=== PATIENT | male | born 1995 | race Caucasian/White ===

== ENCOUNTER 2022-02-25 19:39 | Emergency (ER) | payer MEDICAID, OTHER ==
[2022-02-25 20:13] LABS: BASOPHILS % (AUTO) 0.5 %; EOSINOPHILS % (AUTO) 0.4 %; HCT - HEMATOCRIT 41.1 % (42.0-52.0); HGB - HEMOGLOBIN 14.4 g/dL (14.0-18.0); LYMPHOCYTES # (AUTO) 1.6 10^3/uL (1.5-3.5); LYMPHOCYTES % (AUTO) 19.5 %; MEAN CORPUSCULAR HEMOGLOBIN 29.4 pg (27.0-31.0); MEAN CORPUSCULAR VOLUME 83.9 fL (80.0-94.0); MEAN PLATELET VOLUME 9.3 fL (7.4-11.4); MONOCYTES # (AUTO) 0.7 10^3/uL (0.0-1.0); MONOCYTES % (AUTO) 8.4 %; NEUTROPHILS # (AUTO) 5.8 10^3/uL (1.5-6.6); PLT - PLATELET COUNT 246 10^3/uL (130-450); RED CELL DISTRIBUTION WIDTH 11.9 % (12.0-15.0); WHITE BLOOD COUNT 8.1 x10^3/uL (4.8-10.8)
[2022-02-25 20:32] LABS: ALBUMIN 4.7 g/dL (3.2-5.5); ALBUMIN/GLOBULIN RATIO 2.1 (1.0-2.2); BILIRUBIN,TOTAL 0.7 mg/dL (0.2-1.0); CALCIUM 9.6 mg/dL (8.5-10.3); CREATININE 1.1 mg/dL (0.6-1.2); TOTAL PROTEIN 6.9 g/dL (6.7-8.2)
--- NOTE | 2022-02-25 20:34 | XRAY Report ---
PROCEDURE: Chest 1 View X-Ray INDICATIONS: Chest pain TECHNIQUE: One view of the chest was acquired. COMPARISON: None. FINDINGS: Surgical changes and devices: None. Lungs and pleura: No pleural effusions or pneumothorax. Lungs are clear. Mediastinum: Mediastinal contours appear normal. Heart size is normal. Bones and chest wall: No suspicious bony lesions. Overlying soft tissues appear unremarkable. IMPRESSION: No acute cardiopulmonary process demonstrated radiographically. Reviewed by: Josue Kingsley MD on 02/25/2022 8:33 PM PDT Approved by: Josue Kingsley MD on 02/25/2022 8:33 PM PDT Station ID: [email or web address]
--- NOTE | 2022-02-25 21:22 | ED Physician Documentation ---
History of Present Illness - Stated complaint Stated Complaint: CHEST PX,SOA - Chief complaint Chief Complaint: Cardiac - History obtained from History obtained from: Patient - History of Present Illness Timing: Today - Additonal information Additional information: 26-year-old male with history of ADHD on Adderall presents for chest pain and shortness of breath that have been present since today. Pain is sharp, intermittent, worse with deep inspiration, doesn't radiate. Patient states that several days ago he had his ADHD medications increased. He states that he has been under a lot of stress and working a lot lately. He states that he vapes, ingests a lot of caffeine, and has had poor sleep for the last 2 to 3 days. In addition he is working on a project where he is standing materials without a facemask on. Patient denies syncope, leg swelling, cough, wheezing, other complaints at this time. Review of Systems Ten Systems: 10 systems reviewed and negative Constitutional: denies: Fever, Chills Cardiac: reports: Chest pain / pressure. denies: Palpitations, Pedal edema Respiratory: reports: Dyspnea. denies: Cough, Wheezing Neurologic: denies: Generalized weakness, Focal weakness, Syncope PD PAST MEDICAL HISTORY - Past Medical History Past Medical History: Yes Psych: Anxiety, ADD/ADHD - Past Surgical History Past Surgical History: Yes Ortho: Other (ORIF right ankle fracture) - Present Medications Home Medications: Ambulatory Orders Medication Instructions Recorded Confirmed No Known Home Medications 03/05/16 03/05/16 - Allergies Allergies/Adverse Reactions: Allergies Allergy/AdvReac Type Severity Reaction Status Date / Time No Known Drug Allergies Allergy Verified 02/25/22 19:56 - Social History Does the pt smoke?: No Smoking Status: Never smoker Does the pt drink ETOH?: No Does the pt have substance abuse?: No - Immunizations Immunizations are current?: Yes - POLST Patient has POLST: No PD ED PE NORMAL - Vitals Vital signs reviewed: Yes - General General: Alert and oriented X 3, No acute distress, Well developed/nourished - HEENT HEENT: Atraumatic, PERRL, EOMI, Ears normal - Neck Neck: Supple, no meningeal sign, No bony TTP, C-Spine cleared by NEXUS criteria - Cardiac Cardiac: RRR, No murmur, No gallop, Strong equal pulses - Respiratory Respiratory: No respiratory distress, Clear bilaterally - Abdomen Abdomen: Soft, Non tender, Non distended - Back Back: No CVA TTP, No spinal TTP - Derm Derm: Normal color, Warm and dry, No rash - Extremities Extremities: No deformity, No tenderness to palpate, Normal ROM s pain, No edema - Neuro Neuro: Alert and oriented X 3, city secretary 2-12 intact, No motor deficit, No sensory deficit, Normal speech - Psych Psych: Normal mood, Normal affect Results - Vitals Vitals: Vital Signs - 24 hr 02/25/22 02/25/22 19:44 21:35 Temperature 36.8 C Heart Rate 96 84 Respiratory 14 12 Rate Blood Pressure 128/82 H 124/88 H O2 Saturation 98 99 Oxygen O2 Source Room air - EKG (time done) 1945 Rate: Rate (enter#) (96) Rhythm: NSR [place]: Normal Intervals: Normal [place] QRS: Normal Ischemia: Normal ST segments - Labs Labs: Laboratory Tests 02/25/22 02/25/22 02/25/22 20:08 20:08 20:08 WBC 8.1 RBC 4.90 Hgb 14.4 Hct 41.1 L MCV 83.9 MCH 29.4 MCHC 35.0 RDW 11.9 L Plt Count 246 MPV 9.3 Neut # (Auto) 5.8 Lymph # (Auto) 1.6 [place] # (Auto) 0.7 Eos # (Auto) 0.0 Baso # (Auto) 0.0 Absolute Nucleated RBC 0.00 Nucleated RBC % 0.0 Sodium 135 Potassium 4.0 Chloride 100 L Carbon Dioxide 27 Anion Gap 8.0 BUN 21 H Creatinine 1.1 Estimated GFR (MDRD) 80 L Glucose 122 H Calcium 9.6 Total Bilirubin 0.7 AST 19 ALT 19 Alkaline Phosphatase 43 Troponin I High Sens 3.1 Total Protein 6.9 Albumin 4.7 Globulin 2.2 Albumin/Globulin Ratio 2.1 Lipase 29 PD MEDICAL DECISION MAKING - ED course Complexity details: reviewed results, re-evaluated patient, considered differential, d/w patient ED course: Well-appearing male with chest pain and shortness of breath. Speaking in complete sentences without difficulty, hemodynamically stable. Labs and imaging are unremarkable. This is likely secondary to numerous factors, not limited to increased stress, decreased sleep, vaping, and poor workplace habits. Counseled on importance of sleep hygiene, decreasing caffeine, and cessation of vaping. Departure - Departure Disposition: 01 Home, Self Care Clinical Impression: Chest pain Qualifiers: Chest pain type: unspecified Qualified Code(s): R07.9 - Chest pain, unspecified Dyspnea Qualifiers: Dyspnea type: unspecified Qualified Code(s): R06.00 - Dyspnea, unspecified Condition: Stable Instructions: Melatonin oral solid dosage forms, ED Insomnia Discharge Date/Time: 02/25/22 21:35
[2022-02-25 21:35] VITALS: BP 124/88
== END 2022-02-25 21:35 | disposition home or self-care (01) ==
LOC: ED 19:39
DX: R07.9 Chest pain, unspecified (principal); R06.09 Other forms of dyspnea
CPT/HCPCS: 36415; 80053; 83690; 84484; 85025; 93005; 99282; 99284

== ENCOUNTER 2022-11-26 21:45 | Emergency (ER) | payer MEDICAID ==
--- NOTE | 2022-11-26 23:48 | ED Physician Documentation ---
PD HPI SKIN - Stated complaint Stated Complaint: INFECTION - Chief complaint Chief Complaint: Wound - History obtained from History obtained from: Patient - Additional information Additional information: HPI from patient. Patient c/o 1 week of right nare swelling, pain/tenderness, erythema. Has had si milar symptoms before for which he was evaluated in ED and rx antibiotics which has resulted in resolution. Patient had amoxicillin left over from old prescription, had brief improvement in symptoms with two days of this medication Review of Systems Constitutional: denies: Fever PD PAST MEDICAL HISTORY - Past Medical History Past Medical History: No Psych: Anxiety, ADD/ADHD - Past Surgical History Past Surgical History: Yes Ortho: Other (ORIF right ankle fracture) - Present Medications Home Medications: Ambulatory Orders Medication Instructions Recorded Confirmed Doxycycline [Vibramycin] 100 mg PO BID #14 tablet 11/26/22 - Allergies Allergies/Adverse Reactions: Allergies Allergy/AdvReac Type Severity Reaction Status Date / Time No Known Drug Allergies Allergy Verified 02/25/22 19:56 - Social History Does the pt smoke?: No Smoking Status: Never smoker Does the pt drink ETOH?: No Does the pt have substance abuse?: No - Immunizations Immunizations are current?: Yes - POLST Patient has POLST: No PD ED PE NORMAL - Vitals Vital signs reviewed: Yes - General General: Alert and oriented X 3, No acute distress, Well developed/nourished PD ED PE EXPANDED - HEENT HEENT Visual: 1 - tenderness (focal erythema, swelling, TTP. mucosal crusting) Results - Vitals Vitals: Oxygen O2 Source Room air PD Medical Decision Making - ED course ED course: focal cellulitis of right nare ala, given 100mg doxycycline in ED and rx for same e-prescribed Departure - Departure Disposition: 01 Home, Self Care Clinical Impression: Cellulitis Qualifiers: Site of cellulitis: face Qualified Code(s): L03.211 - Cellulitis of face Condition: Good Instructions: ED Staph Infec Abx Tx Only Follow-Up: Bishop Gilbert [Primary Care Provider] - Prescriptions: Doxycycline [Vibramycin] 100 mg PO BID #14 tablet Comments: It appears that you have an infection of the skin on the side of the nose; there is also some crusting on the inner aspect of the nostril that correlates with the same site as the outer infection. This crusting further suggests a bacterial infection. You are given the first dose of an antibiotic (doxycycline) in the emergency department, and a prescription for a 1 week course of this antibiotic has been electronically submitted to the [facility] pharmacy in [place]. Discharge Date/Time: 11/27/22 00:05
[2022-11-27] MEDS: DOXYCYCLINE 100 MG TABLET PO STA (00:04)
[2022-11-27 00:06] VITALS: BP 134/84
== END 2022-11-27 00:05 | disposition home or self-care (01) ==
LOC: ED 21:45
DX: J34.0 Abscess, furuncle and carbuncle of nose (principal)
CPT/HCPCS: 99282; 99283; A9270

== ENCOUNTER 2023-07-06 01:25 | Emergency (ER) | payer MEDICAID ==
[2023-07-06 01:33] VITALS: BP 147/87; O2SAT 100
[2023-07-06] MEDS ORDERED: ONDANSETRON ODT 4 MG Prepack 2 TL PRN (01:41)
[2023-07-06] MEDS ORDERED: DOXYCYCLINE 100 MG TABLET PO STA (01:41)
[2023-07-06] MEDS ORDERED: ONDANSETRON ODT 4 MG TABLET TL STA (01:41)
[2023-07-06] MEDS ORDERED: KETOROLAC 60 MG/2 ML VIAL IM STA (01:41)
--- NOTE | 2023-07-06 01:44 | ED Physician Documentation ---
PD HPI SKIN - Stated complaint Stated Complaint: HAMMOND/ NAUSEA - Chief complaint Chief Complaint: Heent - History obtained from History obtained from: Patient - Additional information Additional information: Patient is a 27-year-old male presenting for evaluation of redness and swelling to his face. He reports having recurrent staph infections to the face with unclear etiology and get some in various areas. This episode started a day or 2 ago with noticing some redness around the left eye and then also in the right jaw area. In the right jaw area there was a small abscess that opened and drained pus today. He denies fever, changes to his vision, blurred vision, chest pain, difficulty swallowing or breathing. He reports mild nausea and headache. He denies any significant prior medical history such as a history of diabetes.He reports responding well to doxycycline for these episodes in the past and that Augmentin in the past has not helped him. Review of Systems Constitutional: denies: Fever Cardiac: denies: Chest pain / pressure Respiratory: denies: Dyspnea GI: denies: Abdominal Pain Skin: reports: Rash PD PAST MEDICAL HISTORY - Past Medical History Psych: Anxiety, ADD/ADHD - Past Surgical History Past Surgical History: Yes Ortho: Other - Present Medications Home Medications: Ambulatory Orders Medication Instructions Recorded Confirmed Doxycycline [Vibramycin] 100 mg PO BID #14 tablet 11/26/22 Doxycycline Hyclate 100 mg PO BID #14 tab 07/06/23 Ondansetron Odt [Zofran] 4 mg TL Q6H PRN #10 tablet 07/06/23 - Allergies Allergies/Adverse Reactions: Allergies Allergy/AdvReac Type Severity Reaction Status Date / Time No Known Drug Allergies Allergy Verified 02/25/22 19:56 - Social History Does the pt smoke?: No Smoking Status: Never smoker Does the pt drink ETOH?: No Does the pt have substance abuse?: No - Immunizations Immunizations are current?: Yes - POLST Patient has POLST: No PD ED PE NORMAL - General General: Alert and oriented X 3, No acute distress, Well developed/nourished - HEENT HEENT: Atraumatic, PERRL, EOMI, Moist mucous membranes, Pharynx benign (No oral swelling, erythema or exudate) - Neck Neck: Supple, no meningeal sign - Cardiac Cardiac: RRR - Respiratory Respiratory: No respiratory distress, Clear bilaterally - Derm Derm: Other (Area of erythema and swelling to right jawline, appears to have had an abscess which is opened and drained, no further fluctuance, no crepitus, no submandibular swelling, normal speech, no trismus, faint area of erythema over left cheek) - Neuro Neuro: Alert and oriented X 3, Normal speech Results - Vitals Vitals: Vital Signs - 24 hr 07/06/23 01:29 Temperature 37 C Heart Rate 91 Respiratory 20 Rate Blood Pressure 147/87 H O2 Saturation 100 Oxygen O2 Source Room air PD Medical Decision Making - ED course ED course: Patient presenting for evaluation of facial rash with 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 Vital signs are stable and he is well- appearing with no signs of meningitis, abscess, deep space infection or orbital cellulitis. Patient has responded well to doxycycline in the past we will start him on this. He has a normal neuro exam and is ambulatory and counseled on treatment plan as well as concerning symptoms to return for. Departure - Departure Disposition: 01 Home, Self Care Clinical Impression: Facial cellulitis, History of staph infection Condition: Stable Instructions: ED Cellulitis Facial Prescriptions: Doxycycline Hyclate 100 mg PO BID #14 tab Ondansetron Odt [Zofran] 4 mg TL Q6H PRN #10 tablet PRN Reason: Nausea / Vomiting Comments: You appear to be having another episode of a staph infection causing a cellulitis on your face. I am starting you on doxycycline and have sent this prescription along with an antinausea medication to [facility]. Please make sure to complete the course of the antibiotic. Return to the ER with any worsening symptoms such as increased swelling or pain. Forms: PCP List Discharge Date/Time: 07/06/23 02:02
== END 2023-07-06 02:02 | disposition home or self-care (01) ==
LOC: ED 01:25
DX: L03.211 Cellulitis of face (principal); Z86.19 Personal history of other infectious and parasitic diseases
CPT/HCPCS: 99282; 99283; A9270; Q0162

== ENCOUNTER 2023-12-11 12:59 | Emergency (ER) | payer MEDICAID ==
[2023-12-11 13:09] VITALS: BP 151/93; O2SAT 99
== END 2023-12-11 15:03 | disposition left against medical advice (07) ==
LOC: ED 12:59
DX: Z53.21 Procedure and treatment not carried out due to patient leaving prior to being seen by health care provider (principal)

== ENCOUNTER 2023-12-11 19:33 | Emergency (ER) | payer MEDICAID ==
--- NOTE | 2023-12-11 20:33 | XRAY Report ---
PROCEDURE: Finger(s) LT INDICATIONS: Crush injury to L 5th finger TECHNIQUE: 3 views of the fifth finger(s) acquired. COMPARISON: None. FINDINGS: Bones: No fractures or dislocations. No suspicious bony lesions. Soft tissues: No suspicious soft tissue calcifications or masses. IMPRESSION: No fracture demonstrated. Consider follow-up radiographs in 10-14 days. Reviewed by: Marcelo Smith MD on 12/11/2023 8:31 PM PDT Approved by: Marcelo Smith MD on 12/11/2023 8:31 PM PDT Station ID: [id number]
--- NOTE | 2023-12-11 21:03 | ED Physician Documentation ---
PD HPI UPPER EXT INJURY - Stated complaint Stated Complaint: LT HAND LAC - Chief complaint Chief Complaint: Trauma Ext - History obtained from History obtained from: Patient - History of Present Illness Location: Left, Hand, Finger (5th) Type of injury: Crush Where injury occurred: Home Timing - onset: How many hours ago (6) Timing - duration: Hours (6) Timing - details: Abrupt onset Pain level max: 5 Pain level now: 3 Improved by: Rest Worsened by: Moving, Palpating Associated symptoms: Swelling. No: Weakness, Numbness, Tingling Contributing factors: No: Anticoagulated - Additonal information Additional information: 28-year-old male states that he was changing a piece of equipment on a tractor today when it crushed his left fifth digit. Occurred approximately 8 hours ago. He states that there is a laceration to the area. He has closed it with a bandage. Tetanus up-to-date. He is having pain to the left fifth digit. Worse with movement and palpation. No numbness or tingling. Patient is right-handed. Patient did come to the emergency department earlier today, but the wait was too long so he went home, decided to come back again tonight for evaluation. Review of Systems Musculoskeletal: denies: Neck pain, Back pain Neurologic: denies: Headache, Head injury PD PAST MEDICAL HISTORY - Past Medical History Past Medical History: Yes Psych: Anxiety, ADD/ADHD - Past Surgical History Past Surgical History: Yes Ortho: Other - Present Medications Home Medications: Ambulatory Orders Medication Instructions Recorded Confirmed cephALEXin [Keflex] 500 mg PO Q6H #28 cap 12/11/23 - Allergies Allergies/Adverse Reactions: Allergies Allergy/AdvReac Type Severity Reaction Status Date / Time lidocaine Allergy Anaphylaxis Verified 12/11/23 19:48 - Social History Does the pt smoke?: No Smoking Status: Never smoker Does the pt drink ETOH?: No Does the pt have substance abuse?: No - Immunizations Immunizations are current?: Yes - POLST Patient has POLST: No PD ED PE NORMAL - Vitals Vital signs reviewed: Yes - General General: Alert and oriented X 3, No acute distress - HEENT HEENT: Moist mucous membranes - Derm Derm: Warm and dry - Extremities Extremities: Other (L hand - There is a 0.5 cm curved laceration to the pad of the left fifth digit. There is also a 1.5 cm linear laceration to the medial aspect of the digit. This does cross the DIP joint. Neurovascular intact. No subungual hematoma. No deformities. Tendons are intact) Results - Vitals Vitals: Vital Signs - 24 hr 12/11/23 12/11/23 19:40 21:19 Temperature 37.3 C 37.3 C Heart Rate 100 71 Respiratory 16 16 Rate Blood Pressure 140/77 H 133/79 H O2 Saturation 99 98 Oxygen O2 Source Room air - Rads (name of study) Left hand x-ray Relevant Findings:: Final report received, See rad report Procedures - Laceration (location) L 5th digit Length in cm: 2 Wound type: Linear, Curved, Into subcut fat, Clean Neurovascular status: Sensory intact, Motor intact, Vascular intact Wound preparation: Irrigated copiously NS Skin layer closure: Dermabond (T ring closure) Other: Patient tolerated well, No complications, Neurovascular intact, Dressing applied, Tetanus UTD PD Medical Decision Making - ED course Complexity details: considered differential, d/w patient ED course: 28-year-old male presents with a crush injury to left fifth digit. He states that every time he receives lidocaine he has a syncopal event. We discussed options for management of this wound. We discussed suturing, but he would prefer not to have sutures. Therefore a T ring closure system with Dermabond was used. There is no further bleeding. Will place on Keflex as this is a dirty wound. Tetanus up-to-date. Finger splint placed for comfort and protection. Warnings of infection and instructions on wound care given at bedside. Also counseled on how to minimize scarring. Patient counseled regarding signs and symptoms for which I believe and urgent re-evaluation would be necessary. Patient with good understanding of and agreement to plan and is comfortable going home at this time This document was made in part using voice recognition software. While efforts are made to proofread this document, sound alike and grammatical errors may occur. Departure - Departure Disposition: 01 Home, Self Care Clinical Impression: Crush injury Finger laceration Qualifiers: Encounter type: initial encounter Finger: little finger Damage to nail status: without damage Foreign body presence: without foreign body Laterality: left Qualified Code(s): S61.217A - Laceration without foreign body of left little finger without damage to nail, initial encounter Condition: Good Instructions: ED Crush Injury Finger No Fx, ED Laceration Hand Follow-Up: your,doctor in 1 week [Other] Prescriptions: cephALEXin [Keflex] 500 mg PO Q6H #28 cap Comments: Your prescription was sent to [facility] in [place]. Please take all antibiotics until gone. Please return if you worsen. A T ring closure system was used tonight. Do not apply any ointment to the area as this may dissolve the glue. The entire thing should fall off in about a week. You can use the splint for comfort over the next few days and to help protect the area. Return if you notice redness, swelling or drainage from the wound. Forms: PCP List Discharge Date/Time: 12/11/23 21:23
[2023-12-11] MEDS: cephALEXin 250 MG CAPSULE PO STA (21:18)
[2023-12-11 21:30] VITALS: BP 133/79; O2SAT 98
== END 2023-12-11 21:23 | disposition home or self-care (01) ==
LOC: ED 19:33
DX: S61.217A Laceration without foreign body of left little finger without damage to nail, initial encounter (principal); S67.197A Crushing injury of left little finger, initial encounter; W20.8XXA Other cause of strike by thrown, projected or falling object, initial encounter; Y93.89 Activity, other specified; Y92.89 Other specified places as the place of occurrence of the external cause; Z88.4 Allergy status to anesthetic agent
CPT/HCPCS: 12001; 73140; 99283; 99284; A9270